=== PATIENT | male | born 1950 | race Caucasian/White ===

== ENCOUNTER 2020-09-14 08:21 | Emergency (ER) | payer MEDICARE, BC ==
[~2020-09-14] VITALS: Ht 180.3 cm; Wt 72.6 kg
--- NOTE | 2020-09-14 09:19 | NUR ---
PT C/O RIGHT LOWER ABD/GROIN PAIN AND LOWER BACK PAIN. PT DENIES N/V, GI DISTRESS. PT HAS A KNOWN INGUINAL HERNIA AND WAS CONCERNED IT WAS GETTING WORSE.
[2020-09-14 09:29] VITALS: BP 142/89
--- NOTE | 2020-09-14 09:29 | NUR ---
PT REC'VD DISCHARGE INSTRUCTIONS AND EDUCATION. PT HAD NO FURTHER QUESTIONS. PT AND SPOUSE AMBULATED TO DC AREA, STEADY GAIT.
== END 2020-09-14 09:36 | disposition home or self-care (01) ==
LOC: ED 08:55
DX: K40.91 Unilateral inguinal hernia, without obstruction or gangrene, recurrent (principal); R10.33 Periumbilical pain; I10 Essential (primary) hypertension
CPT/HCPCS: 99281